=== PATIENT | male | born 1995 | race Caucasian/White ===

== ENCOUNTER 2019-03-22 23:25 | Emergency (ER) | payer OTHER ==
[~2019-03-22] VITALS: Ht 177.8 cm; Wt 77.1 kg
[2019-03-22 23:25] VITALS: BP 120/74
--- NOTE | 2019-03-22 23:28 | NUR ---
TO LOBBY A/W BED AMBULATORY
--- NOTE | 2019-03-23 01:51 | NUR ---
PT TAKEN TO BED 8
--- NOTE | 2019-03-23 01:58 | NUR ---
PT ASSESSMENT COMPLETE. PT SEATED UPRIGHT IN BED.
[2019-03-23] MEDS ORDERED: BACITRACIN OINT 500 UNITS/GM PKT TP ONE ×2 (02:03→02:10)
--- NOTE | 2019-03-23 02:09 | NUR ---
PT MOVED TO CHAIR D
--- NOTE | 2019-03-23 02:36 | NUR ---
Patient discharged with v/s stable. Written and verbal after care instructions given and explained. Patient verbalized understanding. Ambulatory with steady gait. All questions addressed prior to discharge. Advised to follow up with PMD.
[2019-03-23 02:40] VITALS: BP 135/84
== END 2019-03-23 02:36 | disposition home or self-care (01) ==
LOC: MED 23:25
DX: Z48.00 Encounter for change or removal of nonsurgical wound dressing (principal); Z85.6 Personal history of leukemia
CPT/HCPCS: 99282